=== PATIENT | female | born 1945 | race Caucasian/White ===

== ENCOUNTER → 2019-10-10 | Day surgery (SDC) | payer OTHER ==
--- NOTE | 2019-10-05 13:43 | Diagnostic Imaging Report ---
EXAM: CHEST 2 VIEWS DATE: 10/05/2019 1:24 PM INDICATION: Preoperative evaluation COMPARISON: None FINDINGS: The trachea is midline. The lungs are symmetrically expanded without evidence for large focal consolidation, pneumothorax, or significant pleural effusion. The cardiomediastinal silhouette and pulmonary vasculature are within normal limits. Mild atherosclerotic calcifications noted within the thoracic aorta. Degenerative changes noted of the thoracic spine. No acute osseous abnormality is identified. The surrounding soft tissues are unremarkable. IMPRESSION: No acute cardiopulmonary process identified. Signed by: Dr. Juan C Zaman MD on 10/05/2019 1:40 PM
[2019-10-05 13:51] LABS: BASOPHILS # (AUTO) 0.1 (0.0-0.1); EOSINOPHILS # (AUTO) 0.2 (0.0-0.4); EOSINOPHILS % 1.7 % (0.0-6.0); HEMATOCRIT 43.4 % (34.2-44.1); HEMOGLOBIN 13.9 g/dL (12.0-16.0); LYMPHOCYTES # (AUTO) 3.9 (1.0-3.2); LYMPHOCYTES % 37.7 % (18.0-39.1); MEAN CORPUSCULAR HEMOGLOBIN 29.5 pg (28-32); MEAN CORPUSCULAR VOLUME 92.1 fL (81-99); MONOCYTES # (AUTO) 0.9 (0.2-0.8); NEUTROPHILS # (AUTO) 5.2 (2.1-6.9); PLATELET COUNT 231 x10e3/uL (140-360); RED BLOOD COUNT 4.71 x10e6/uL (3.6-5.1); RED CELL DISTRIBUTION WIDTH 14.2 % (11.7-14.4)
[2019-10-05 14:24] LABS: INR 0.83; PARTIAL THROMBOPLASTIN TIME 25.8 seconds (23.8-35.5); PROTHROMBIN TIME 11.9 seconds (11.9-14.5)
[2019-10-05 14:31] LABS: ANION GAP 14.2 mmol/L (8-16); BLOOD UREA NITROGEN 16 mg/dL (7-26); BUN/CREATININE RATIO 21 (6-25); CALCIUM 9.5 mg/dL (8.4-10.2); CARBON DIOXIDE 30 mmol/L (22-29); CHLORIDE 103 mmol/L (98-107); CREATININE, SERUM 0.75 mg/dL (0.57-1.11); EST GLOMERULAR FILTRATION RATE > 60 ML/MIN (60-); GLUCOSE 99 mg/dL (74-118); POTASSIUM 4.2 mmol/L (3.5-5.1); SODIUM 143 mmol/L (136-145)
[~2019-10-10] MED LIST: ASPIR 8181 MG PO; ATORVASTATIN CA40 MG PO; BACITRACIN 50,000 UNIT VIAL ONE; CEFAZOLIN SOD 1 GM/NS 50ML 100 ML IV ONE; CLOPIDOGREL75 MG PO; DEXAMETHASONE SOD PHOS INJ 4 MG/ML VIAL ONE; DILTIAZEM HCL60 MG PO; EPHEDRINE SULFATE INJ 50 MG/ML VIAL ONE; FENTANYL CITRATE/PF 100MCG/2 ML INJ ONE; GLUCOSAMINE1000 MG PO; HYDROCODONE/APAP 5MG-325MG TAB ONE; ISOSORBIDE MONO20 MG PO; KETOROLAC TROMETHAMINE 30 MG/ML VIAL ONE; LIDOCAINE HCL 2% LOCAL INJ 5 ML SDV VIAL INJ ONE; MORPHINE SULFATE 2 MG/ML SYR 1ML ONE; ONDANSETRON HCL INJ 2MG/ML 2ML 2 MG/ML VIAL ONE; PROPOFOL IV EMULSION 10 MG/ML 20 ML VIAL ONE; QUINAPRIL HCL20 MG PO; ROPIVACAINE 246.25 MG, EPINEPHRINE HCL 1:1000 1ML 0.5 MG, CLONIDINE HCL 0.08 MG, KETORO... INJ ONE; SEVOFLURANE INHAL SOLN 250 ML PEN BTL ONE; SODIUM CHLORIDE 0.9% 100 ML ONE; VITAMIN D PO
[2019-10-10] MEDS: KETOROLAC TROMETHAMINE 30 MG/ML VIAL ONE (08:40)
--- NOTE | 2019-10-10 14:06 | Operative Report ---
DATE OF PROCEDURE: 10/10/2019 SURGEON: SCOTTY HUA MD LOCATION: Place of surgery is [facility]. HISTORY: Ms. Levy is a 73-year-old female whom I had been following in the orthopedic clinic for ongoing chronic pain involving the left knee secondary to end-stage degenerative joint disease of the left knee. The patient had elected to forgo any further conservative treatment for which she has had previously consisting of injections, anti-inflammatories, outpatient therapy and/or NSAIDs, all of which have failed to resolve her pain symptoms fully and completely. The risks and benefits of surgery have been outlined to her, consisting but not limited to the following: Infection, blood loss, nerve, vessel or tendon injury, DVT, ongoing pain, stiffness, nerve injury including peroneal palsy and/or neuropraxia as well as leg length discrepancy. The patient was seen and identified in the preoperative holding area. The left knee was marked by myself, was agreed upon by the patient, preoperative nursing staff and anesthesia. The patient received a successful adductor canal block by Anesthesia and then brought back to operative suite. Time-out was taken from Ms. Nayeli Levy for a left total knee arthroplasty and all were in agreement including nursing staff, anesthesia and myself. The patient was then given successful general intubation anesthetic and then a non-sterile tourniquet was placed high in the left upper thigh. Left lower extremity was then sterilely prepped and draped in usual standard fashion. Limb was exsanguinated and tourniquet was inflated to approximated 250 mmHg. A initial 10-frey Gomez blade was used to make the initial skin incision starting from the superior pole of the patella extending down to tibial tuberosity. At which time, subcutaneous bleeding was controlled using needle Bovie tip. A second 10-Bard Gomez deep blade was then used to make the medial arthrotomy. Degenerative joint fluid was suctioned out. The patella was then carefully everted and the knee carefully flexed up protecting the patella tendon at all times. The medial and lateral remnant meniscus were resected. Medial and lateral retractors were placed in protecting the medial and lateral collateral ligament as well as the lateral peroneal nerve throughout the entire procedure. The remnant ACL was removed. Again, the patient complete cartilage loss of all 3 compartments with marked bony osteophytes. The bony osteophytes were removed using rongeur. FEMORAL COMPONENT: Attention was then turned to the femoral side. The drill guide was used to make the entry point for the intramedullary femoral guide, which was placed in. Resection cut was made of the distal femur in 3 degrees of external rotation and 5 degrees of valgus. The femur was then sized to #5, a 4 in 1 cutting block was impacted and the anterior and posterior cuts were then completed and subsequently the anterior and posterior chamfer cuts. #5 left CR femur was then trialed, had excellent fit circumferentially. TIBIAL COMPONENT: The extramedullary tibial guide was placed in and placed in alignment using proximal third of the tibial tuberosity, tibial shaft, and distal ankle joint and 2 nd ray. A resection cut was made of the proximal tibia where the posterior 5-degree slope measuring of the low side. After soft tissue balancing the flexion and extension, cuts were found to be symmetrical. The tibia was then sized and #5 universal tibia baseplate was placed in the correct rotation and alignment was confirmed with 4 alignment rods proximally and distally with the knee in full extension. The center punch and keel was then completed. A trial poly was carried out with a 9, 11, and 13 mm CS poly, the 11 mm CS poly gave the most stable fit allowing full extension up to 0 correcting the flexion contracture deformity as well as the full flexion past 130 degrees. PATELLA COMPONENT: The patella was resected to approximately 14 to 16 mm and patella was sized to 38 mm patella. A 38 mm asymmetrical patella was correctly lateralized and the peg holes were drilled. Upon range of motion of the trial components, the extension of 0 flexion were both 130 degrees. No instability at 0, 30, 60, 90 degrees of flexion as well as full extension. The patient had excellent patellofemoral tracking throughout the entire range of motion. The trial components were removed. Antibiotic cement was prepared on the back table. Copious irrigation was carried out with 6 L of antibiotic and saline solution. First, second and final counts were found to be correct. A intraarticular pericapsular shayne injection was completed with 100 mL of cocktail mixture in the usual standard fashion. The final components were placed then allowing the knee to full extension to allow the cement to hard. All excess cement ws removed. Again, one final irrigation was carried out and final counts were found to be correct. Tourniquet was released and there was no acute postop bleeding noted and the deep layer closed down beginning with the capsulotomy. Capsule was closed using 1 Ethibond, 0 Vicryl, 2-0 Vicryl, skin reapproximated with nemesio. Xeroform compressive dressing was applied and Tony wrap from thigh to foot and the patient was transferred to PACU in a stable condition. PREOPERATIVE DIAGNOSIS: Severe degenerative joint disease of the left knee, trial compartment. POSTOPERATIVE DIAGNOSIS: Severe trial compartment degenerative joint disease of the left knee. PROCEDURE: Left total knee arthroplasty with the following components: 1. A Omar Traflon #5 left CR femoral component. 2. A #5 universal tibial baseplate. 3. A #30 asymmetrical patella. 4. A #5 x 11 mm CS poly inserts. Left knee shayne injection. ANESTHESIA: Adductor canal block with general intubation anesthetic. ESTIMATED BLOOD LOSS: Less than 70 mL. SPECIMENS: Bones and soft tissues. COMPLICATIONS: None. Intraoperative findings were severe degenerative joint disease of the left knee, trial compartment. The patient was seen in PACU. Dressings clean and dry. Capillary refills are brisk. Pain is well controlled. The block was working sufficiently. Capillary refills are brisk. Pulses are 2/4. The intraoperative findings were reviewed and discussed with her family at discharge and wound care instructions were given. The patient is weightbearing as tolerated with walker. The patient will begin her first session of therapy this morning and the second therapy this afternoon to assess stability with discharge at that time. If she is discharged home, she will follow up with Orthopedic Clinic in 2 weeks. I will begin outpatient therapy tomorrow. The patient was discharged home with [place] as well as Lovenox and Keflex. Discharge wound care instructions were also discussed with nursing staff. MD ESTER SALINAS/ELAN /[id number] GALLO
[2019-10-10 14:30] VITALS: BP 115/67
== END | disposition home or self-care (01) ==
LOC: OR 05:00
PROVIDERS: ATTEND Orthopaedic Surgery
DX: M17.12 Unilateral primary osteoarthritis, left knee (principal); M25.762 Osteophyte, left knee; M22.42 Chondromalacia patellae, left knee; M16.12 Unilateral primary osteoarthritis, left hip; I25.10 Atherosclerotic heart disease of native coronary artery without angina pectoris; I10 Essential (primary) hypertension; E78.5 Hyperlipidemia, unspecified; Z01.810 Encounter for preprocedural cardiovascular examination; Z01.812 Encounter for preprocedural laboratory examination; Z01.818 Encounter for other preprocedural examination; Z11.59 Encounter for screening for other viral diseases; Z79.02 Long term (current) use of antithrombotics/antiplatelets; Z79.82 Long term (current) use of aspirin
CPT/HCPCS: 27447; 36415; 71046; 80048; 85025; 85610; 85730; 86850; 86900; 86920; 93005; 97116; 97161; 97530; C1713 ×3; C1776 ×2; J0171; J0690; J1100; J1885; J2001; J2270; J2405; J2704; J2795; J3010; J7050; U0002